=== PATIENT | female | born 1985 | race Caucasian/White ===

== ENCOUNTER 2024-04-23 12:09 | Emergency (ER) | payer OTHER ==
[2024-04-23 13:00] VITALS: BP 123/77; PULSE 79; RESP 18; TEMP 98.3; BMI 35.3
[2024-04-23] MEDS ORDERED: ACETAMINOPHEN INJECTION 100 ML ONE (13:39)
[2024-04-23] MEDS: SODIUM CHLORIDE 0.9% 500 ML INFUS.BAG IV ONE (13:50)
[2024-04-23] MEDS: ACETAMINOPHEN 1000 MG/100 ML BAG IVPB ONE (13:51)
[2024-04-23 14:04] LABS: POTASSIUM 5.2 mmol/L (3.5-5.1)
[2024-04-23 14:07] LABS: ALBUMIN 3.7 g/dl (3.4-5.0); BLOOD UREA NITROGEN 14.1 mg/dL (7-18); CALCIUM 9.5 mg/dL (8.5-10.1)
[2024-04-23 14:10] LABS: CREATININE 0.8 mg/dL (0.55-1.3)
[2024-04-23 14:12] LABS: BILIRUBIN,TOTAL 0.4 mg/dL (0.2-1); TOT PROT 7.9 g/dl (6.4-8.2)
[2024-04-23 14:40] LABS: BASO % 0.6 % (0-2.0); EOS % 0.4 % (0-4.5); HEMATOCRIT 37.4 % (32.4-45.2); HEMOGLOBIN 12.3 GM/dL (10.7-15.3); MCH 28.7 pg (25.7-33.7); MCHC 32.8 g/dl (32.0-36.0); MEAN CELL VOLUME 87.4 fl (80-96); MEAN PLT VOLUME 8.6 fl (7.5-11.1); MONO % 5.6 % (3.8-10.2); NEUT % 69.4 % (42.8-82.8); PLATELET COUNT 440 10^3/uL (134-434); RBC 4.28 M/mm3 (3.60-5.2); RDW 13.8 % (11.6-15.6); WHITE BLOOD COUNT 10.1 K/mm3 (4.0-10.0)
[2024-04-23 15:02] LABS: HIV INTERPRETATION NEGATIVE (NEGATIVE)
[2024-04-23] MEDS: IBUPROFEN 400 MG TABLET (FP) PO ONE (15:03)
[2024-04-23] MEDS ORDERED: IBUPROFEN 400 MG TABLET (FP) PO ONE (15:03)
== END 2024-04-23 16:02 | disposition home or self-care (01) ==
LOC: JER 12:09
PROC: 3E033NZ Introduction of Analgesics, Hypnotics, Sedatives into Peripheral Vein, Percutaneous Approach (ICD-10-PCS; principal; 2024-04-23)
DX: R51.9 Headache, unspecified (principal); R11.10 Vomiting, unspecified; H53.149 Visual discomfort, unspecified
CPT/HCPCS: 36415; 80053; 84703; 85025; 86803; 87389; 99284-25; J0131

== ENCOUNTER 2024-04-25 19:47 | Emergency (ER) | payer OTHER ==
[2024-04-25 19:55] VITALS: BP 115/76; PULSE 80; RESP 18; TEMP 98.3; BMI 35.3
[2024-04-25] MEDS ORDERED: KETOROLAC TROMETHAMINE 30 MG/1 ML VIAL ONE (20:44)
[2024-04-25] MEDS ORDERED: METOCLOPRAMIDE HCL INJECTION 10 MG/2 ML VIAL ONE (20:44)
[2024-04-25] MEDS: SODIUM CHLORIDE 0.9% 1000 ML INFUS.BAG IV ONE (21:04)
[2024-04-25] MEDS: METOCLOPRAMIDE HCL INJECTION 10 MG/2 ML VIAL IVPB ONE (21:05)
[2024-04-25] MEDS: KETOROLAC TROMETHAMINE 30 MG/1 ML VIAL IVPUSH ONE (21:05)
[2024-04-25] MEDS ORDERED: ACETAMINOPHEN INJECTION 100 ML ONE (21:09)
[2024-04-25] MEDS: ACETAMINOPHEN 1000 MG/100 ML BAG IVPB ONE (21:15)
[2024-04-25 22:01] LABS: BASO % 0.6 % (0-2.0); EOS % 0.6 % (0-4.5); HEMATOCRIT 35.1 % (32.4-45.2); HEMOGLOBIN 11.7 GM/dL (10.7-15.3); LYMPH % 20.5 % (8-40); MCH 29.2 pg (25.7-33.7); MCHC 33.3 g/dl (32.0-36.0); MEAN CELL VOLUME 87.8 fl (80-96); MEAN PLT VOLUME 7.1 fl (7.5-11.1); MONO % 5.3 % (3.8-10.2); PLATELET COUNT 385 10^3/uL (134-434); RDW 14.1 % (11.6-15.6); WHITE BLOOD COUNT 14.7 K/mm3 (4.0-10.0)
[2024-04-25 22:07] LABS: INR 0.99 (0.83-1.09); PROTHROMBIN TIME (PATIENT) 11.2 SEC (9.7-13.0)
[2024-04-25 22:14] LABS: CHLORIDE 106 mmol/L (98-107); POTASSIUM 4.4 mmol/L (3.5-5.1); SODIUM 137 mmol/L (136-145)
[2024-04-25 22:15] LABS: ALBUMIN 3.6 g/dl (3.4-5.0); ANION GAP 7 mmol/L (4-13); BLOOD UREA NITROGEN 10.6 mg/dL (7-18); CALCIUM 8.5 mg/dL (8.5-10.1); CO2 24 mmol/L (21-32); GLUCOSE,RANDOM 96 mg/dL (74-106)
[2024-04-25 22:18] LABS: CREATININE 0.7 mg/dL (0.55-1.3); SGOT/AST 27 U/L (15-37); SGPT/ALT 21 U/L (13-61)
[2024-04-25 22:20] LABS: BILIRUBIN,TOTAL 0.5 mg/dL (0.2-1); TOT PROT 7.2 g/dl (6.4-8.2)
[2024-04-25 22:21] LABS: ALK PHOS 94 U/L (45-117)
== END 2024-04-25 22:28 | disposition home or self-care (01) ==
LOC: JER 19:47
PROC: 3E033NZ Introduction of Analgesics, Hypnotics, Sedatives into Peripheral Vein, Percutaneous Approach (ICD-10-PCS; principal; 2024-04-25)
PROC: 3E0333Z Introduction of Anti-inflammatory into Peripheral Vein, Percutaneous Approach (ICD-10-PCS; 2024-04-25)
PROC: 3E033GC Introduction of Other Therapeutic Substance into Peripheral Vein, Percutaneous Approach (ICD-10-PCS; 2024-04-25)
DX: R51.9 Headache, unspecified (principal); G89.29 Other chronic pain; R20.2 Paresthesia of skin
CPT/HCPCS: 36415; 76512; 80053; 84702; 85025; 85610; 86850; 86900; 86901; 99284-25; J0131

== ENCOUNTER 2025-02-16 22:40 | Inpatient (IN) | payer OTHER ==
[2025-02-16 22:47] VITALS: BMI 27.4
[2025-02-16] MEDS: SODIUM CHLORIDE 0.9% 500 ML INFUS.BAG IV ONE (23:47)
[2025-02-16 23:52] LABS: ABSOLUTE IMMATURE GRANULOCYTES 0.02 x10^3/uL (0.0-0.031); BASOPHILS # 0.02 x10^3/uL (0.01-0.08); EOSINOPHIL % 0.1 % (0.7-5.8); EOSINOPHILS # 0.01 x10^3/uL (0.04-0.36); HEMATOCRIT 37.2 % (34.1-44.9); HEMOGLOBIN 11.9 g/dL (11.2-15.7); MEAN CELL VOLUME 92.3 fl (79.4-94.8); MEAN PLT VOLUME 9.1 fl (9.4-12.3); MONOCYTE # 0.54 x10^3/uL (0.24-0.86); MONOCYTE % 6.2 % (4.7-12.5); PLATELET COUNT 387 x10^3/uL (182-369); RDW 12.7 % (12.1-16.8)
[2025-02-16 23:57] LABS: INR 1.14 (0.83-1.09); PROTHROMBIN TIME (PATIENT) 12.5 SEC (9.7-13.0)
[2025-02-17] LABS: ACTIVATED PTT 35.6 SECONDS (25.2-36.5)
[2025-02-17 00:55] LABS: POTASSIUM 3.6 mmol/L (3.5-5.1)
[2025-02-17 00:57] LABS: CALCIUM 9.6 mg/dL (8.5-10.1)
[2025-02-17 00:58] LABS: BLOOD UREA NITROGEN 7.3 mg/dL (7-18); MAGNESIUM 1.8 mg/dL (1.8-2.4)
[2025-02-17 01:01] LABS: CREATININE 0.7 mg/dL (0.55-1.3)
[2025-02-17 01:02] LABS: BILIRUBIN,TOTAL 0.6 mg/dL (0.2-1); TOT PROT 7.9 g/dl (6.4-8.2)
[2025-02-17 05:13] LABS: URINE APPEARANCE Clear; URINE BILIRUBIN Negative (NEGATIVE); URINE COLOR Yellow; URINE GLUCOSE (UA) Negative (NEGATIVE); URINE KETONE 15 mg/dl (NEGATIVE); URINE LEUK ESTERASE Negative (NEGATIVE); URINE NITRITE Negative (NEGATIVE); URINE PROTEIN Negative (NEGATIVE)
[2025-02-17 05:32] LABS: COCAINE, UR NEGATIVE (NEGATIVE); METHADONE, UR NEGATIVE (NEGATIVE); URINE BARBITURATES NEGATIVE (NEGATIVE); URINE BENZODIAZEPINES NEGATIVE (NEGATIVE)
[2025-02-17 05:33] LABS: OPIATES, URI NEGATIVE (NEGATIVE); PHENCYCLIDINE,URINE NEGATIVE (NEGATIVE); URINE AMPHETAMINES NEGATIVE (NEGATIVE)
[2025-02-17 07:51] LABS: POTASSIUM 3.9 mmol/L (3.5-5.1)
[2025-02-17 07:52] LABS: HEMATOCRIT 38.5 % (34.1-44.9); HEMOGLOBIN 12.2 g/dL (11.2-15.7); MCHC 31.7 g/dl (32.2-35.5); MEAN CELL VOLUME 93.7 fl (79.4-94.8); MEAN PLT VOLUME 10.1 fl (9.4-12.3); PLATELET COUNT 400 x10^3/uL (182-369); RDW 12.7 % (12.1-16.8)
[2025-02-17 07:53] LABS: CALCIUM 9.5 mg/dL (8.5-10.1)
[2025-02-17 07:54] LABS: ALBUMIN 3.8 g/dl (3.4-5.0); MAGNESIUM 1.8 mg/dL (1.8-2.4)
[2025-02-17 07:57] LABS: PHOSPHOROUS 3.7 mg/dL (2.5-4.9)
[2025-02-17 07:59] LABS: BILIRUBIN,TOTAL 0.7 mg/dL (0.2-1); TOT PROT 7.6 g/dl (6.4-8.2)
[2025-02-17 08:37] LABS: CREATININE 0.6 mg/dL (0.55-1.3)
[2025-02-17] MEDS: ENOXAPARIN NA (PORCINE) 40 MG/0.4 ML DISP.SYRIN SQ SCH (09:46)
[2025-02-17] MEDS: MAGNESIUM 1GM/D5W 100ML - 100 ML IVPB IVPB ONE (09:46)
[2025-02-17] MEDS: SACUBITRIL/VALSARTAN 97 MG-103 MG TABLET PO SCH (09:46)
[2025-02-17 12:45] LABS: N-TERMINAL BNP 97.7 pg/ml (5-125)
[2025-02-17] MEDS: ATENOLOL 50 MG TABLET (FP) PO ONE (15:11)
[2025-02-17] MEDS: SODIUM CHLORIDE 1,000 ML IV SCH (15:19)
[2025-02-17] MEDS: NEBIVOLOL 10 MG TABLET (FP) PO SCH (15:19)
[2025-02-18 04:51] VITALS: TEMP 98.2
[2025-02-18] MEDS ORDERED: ACETAMINOPHEN 325 MG TABLET (FP) PO PRN ×2 (08:33→08:42)
[2025-02-18] MEDS ORDERED: ONDANSETRON 4 MG/2 ML VIAL IVPUSH PRN (08:45)
[2025-02-18] MEDS ORDERED: ONDANSETRON 4 MG/2 ML VIAL ONE (08:46)
[2025-02-18] MEDS: MULTIVITAMINS (DAILY MVI) TABLET (FP) PO SCH (09:46)
[2025-02-18] MEDS: amLODIPine BESYLATE 10 MG TABLET (FP) PO SCH (09:46)
[2025-02-18] MEDS ORDERED: MAGNESIUM OXIDE 400 MG TABLET (FP) PO ONE (10:30)
[2025-02-18] MEDS: MAGNESIUM OXIDE 400 MG TABLET (FP) PO ONE (10:53)
[2025-02-18 12:01] VITALS: BP 136/98; PULSE 92; RESP 14
== END 2025-02-18 12:37 | disposition home or self-care (01) | DRG 201 ==
LOC: JER 22:40 → JERBED 02-17 03:18 → J4W 02-17 05:42
PROVIDERS: ADMIT Internal Medicine; ATTEND Internal Medicine
DX: R00.0 Tachycardia, unspecified (principal); I11.0 Hypertensive heart disease with heart failure; I50.32 Chronic diastolic (congestive) heart failure; R00.2 Palpitations; F41.9 Anxiety disorder, unspecified; Z98.84 Bariatric surgery status
CPT/HCPCS: 36415; 71045-TC-FY; 71275-TC; 80053; 80307; 81003; 82550; 83735; 83880; 84100; 84439; 84443; 84484; 84703; 85025; 85027; 85610; 85730; 93005; 93010; 93306-TC; 99285-25